=== PATIENT | male | born 1990 | race American Indian/Alaskan Native ===

== ENCOUNTER 2017-06-06 16:58 | Emergency (ER) | payer MEDICAID ==
[2017-06-06 17:07] VITALS: O2SAT 100
[2017-06-06 17:49] LABS: EOS # 0.2 K/uL (0.0-0.7); EOS % 4.3 % (0.0-4.0); HEMOGLOBIN 14.4 g/dL (12.0-18.0); LYMPH # 2.1 K/uL (1.0-4.3); LYMPH % 45.7 % (20.0-40.0); MEAN CELL VOLUME 83.3 fL (80.0-94.0); MEAN CORPUSCULAR HEMOGLOBIN 28.4 pg (27.0-31.0); MEAN PLATELET VOLUME 7.7 fL (7.2-11.7); MONO # 0.5 K/uL (0.0-0.8); MONO % 9.6 % (0.0-10.0); NEUT # 1.8 K/uL (1.8-7.0); NEUT % 39.4 % (50.0-75.0); RBC 5.09 Mil/uL (4.40-5.90); RED CELL DISTRIBUTION WIDTH 13.3 % (11.5-14.5); WHITE BLOOD COUNT 4.7 K/uL (4.8-10.8)
--- NOTE | 2017-06-06 17:52 | C.PDOC ---
History Of Present Illness <Margarita Cagle - Last Filed: 06/06/17 18:55> <Rob Connell - Last Filed: 06/06/17 20:05> 26-year-old male, presents to the emergency department with complaints of suicidal ideation. Patient denies plan. No HI (Margarita Cagle) History Per: Patient History/Exam Limitations: no limitations Onset/Duration Of Symptoms: Days Current Symptoms Are (Timing): Still Present <Margarita Cagle - Last Filed: 06/06/17 18:55> <Rob Connell R - Last Filed: 06/06/17 20:05> Time Seen by Provider: 06/06/17 17:04 Chief Complaint (Nursing): Psychiatric Evaluation Past Medical History Reviewed: Historical Data, Nursing Documentation, Vital Signs Family History: States: No Known Family Hx - Social History Hx Alcohol Use: No Hx Substance Use: No <Margarita Cagle - Last Filed: 06/06/17 18:55> Vital Signs: Last Vital Signs Temp 98.3 F 06/06/17 17:03 Pulse 60 06/06/17 17:03 Resp 16 06/06/17 17:03 BP 118/76 06/06/17 17:03 Pulse Ox 100 06/06/17 18:56 Review Of Systems Constitutional: Negative for: Fever Cardiovascular: Negative for: Chest Pain Respiratory: Negative for: Shortness of Breath Gastrointestinal: Negative for: Vomiting Musculoskeletal: Negative for: Back Pain Neurological: Negative for: Weakness, Numbness, Headache Psych: Positive for: Suicidal ideation <Margarita Cagle - Last Filed: 06/06/17 18:55> Physical Exam - Physical Exam Appears: Non-toxic, No Acute Distress Skin: Warm, Dry, No Rash Head: Atraumatic, Normacephalic Eye(s): bilateral: Normal Inspection, PERRL Nose: Normal Oral Mucosa: Moist Lips: Normal Appearing Neck: Normal ROM Cardiovascular: Rhythm Regular, No Murmur Respiratory: Normal Breath Sounds, No Accessory Muscle Use Extremity: Normal ROM Neurological/Psych: Oriented x3 <Margarita Cagle - Last Filed: 06/06/17 18:55> ED Course And Treatment - Laboratory Results Result Diagrams: 06/06/17 17:43 06/06/17 17:43 O2 Sat by Pulse Oximetry: 100 (on RA) Pulse Ox Interpretation: Normal <Margarita Cagle - Last Filed: 06/06/17 18:55> - Laboratory Results Result Diagrams: 06/06/17 17:43 06/06/17 17:43 <Rob Connell - Last Filed: 06/06/17 20:05> Disposition - Disposition Disposition Time: 18:56 <Margarita Cagle - Last Filed: 06/06/17 18:55> Discussed With DrLitzy: Mateusz Green Counseled Patient/Family Regarding: Diagnosis - Disposition Disposition Time: 20:05 - POA Present On Arrival: None <Rob Connell - Last Filed: 06/06/17 20:05> - Disposition Referrals: [facility] [Outside] Instructions: Depression (DC) Forms: Geneva Mars (Filipino) - Clinical Impression Clinical Impression: Moderate major depression, single episode - Scribe Statement The provider has reviewed the documentation as recorded by the Scribe (Dylan Coto) <Margarita Cagle - Last Filed: 06/06/17 18:55> <Rob Connell - Last Filed: 06/06/17 20:05> - Scribe Statement All medical record entries made by the Scribe were at my direction and personally dictated by me. I have reviewed the chart and agree that the record accurately reflects my personal performance of the history, physical exam, medical decision making, and the department course for this patient. I have also personally directed, reviewed, and agree with the discharge instructions and disposition. (Margarita Cagle) Physician Patient Turnover Patient Signed Over To: Rob Connell Handoff Comments: Pending psych and crisis eval <Margarita Cagle - Last Filed: 06/06/17 18:55>
[2017-06-06 18:00] LABS: ALB/GLOB RATIO 1.4 (1.0-2.1); ALBUMIN 4.4 g/dL (3.5-5.0); ALT/SGPT 37 U/L (21-72); AST/SGOT 30 U/L (17-59); BLOOD UREA NITROGEN 12 mg/dL (9-20); CALCIUM 8.5 mg/dl (8.6-10.4); GFR AFRICAN-AMERICAN > 60; GFR NON-AFRICAN AMERICAN > 60
[2017-06-06 18:02] LABS: URINE BACTERIA RARE (<OCC); URINE BILIRUBIN NEGATIVE (NEGATIVE); URINE BLOOD NEGATIVE (NEGATIVE); URINE CLARITY Hazy (Clear); URINE COLOR Yellow (YELLOW); URINE GLUCOSE (UA) NORMAL (Normal); URINE LEUKOCYTE ESTERASE NEG Leu/uL (Negative); URINE NITRATE NEGATIVE (NEGATIVE); URINE PROTEIN NEGATIVE (NEGATIVE); URINE UROBILINOGEN NORMAL mg/dL (0.2-1.0)
[2017-06-06 18:11] LABS: BARBITURATES, UR NEGATIVE (NEGATIVE); BENZODIAZEPINES, UR NEGATIVE (NEGATIVE); OPIATES, UR NEGATIVE (NEGATIVE); PHENCYCLIDINE, UR NEGATIVE (NEGATIVE)
[2017-06-06 20:28] VITALS: BP 128/79; PULSE 52; RESP 18; TEMP 97.8
== END 2017-06-06 20:28 | disposition home or self-care (01) ==
LOC: C.ER 16:58
DX: F32.1 Major depressive disorder, single episode, moderate (principal)